=== PATIENT | male | born 1995 | race African-American/Black ===

== ENCOUNTER 2016-11-10 13:54 | Emergency (ER) | payer OTHER ==
[~2016-11-10] VITALS: Ht 175.3 cm; Wt 86.0 kg
[~2016-11-10 13:54] MED LIST: ALBU8I INH; CYCL-36 PO; HALO50P IM; IBUP800T23 PO; NAPR500 PO
[2016-11-10 13:57] VITALS: BP 174/84; PULSE 94; RESP 18; TEMP 98.1; O2SAT 98
[2016-11-10] MEDS ORDERED: HALO100P IM (14:14)
[2016-11-10] MEDS ORDERED: LIDOCAINE 1%/EPINEPHrine 1:100,000 SOLN 20 ML VIAL INFIL ONE (14:30)
--- NOTE | 2016-11-10 14:33 | PD ---
Physical Exam Date Seen by Provider: Nov 10, 2016 Time Seen by Provider: 14:32 Narrative I was asked by Dr. Howe to incise and drain abscess to the patient's left groin. Please see his documentation for full history and physical. Data Data Last Documented VS Vital Signs Date Time Temp Pulse Resp B/P Pulse Ox O2 Delivery O2 Flow Rate FiO2 11/10/16 14:10 16 11/10/16 13:57 98.1 94 174/84 98 Orders Wound Culture And Gram Stain (11/10/16 14:18) Lidocai-Epi 1%-1:100,000 Inj (Xylocaine- (11/10/16 14:30) MDM Medical Record Reviewed: Yes Supervised Visit with ADIS: No Procedures Procedure Narrative INCISION AND DRAINAGE OF ABSCESS: The area was prepped and was sterilely draped. A subcutaneous wheal of 1% Xylocaine with epinephrine with a total number 4 mL was used to anesthetize the area. The area was properly anesthetized. A number 11 scalpel was used to make a 1 -cm incision across the area of the abscess. Cultures were obtained. The abscess was drained an irrigated with normal saline. Quarter inch iodoform packing was placed in the wound. Sterile dressing applied. Patient advised to have packing removed in two days. Queenie Brock Nov 10, 2016 14:33
--- NOTE | 2016-11-10 14:43 | PD ---
HPI Chief Complaint: Skin Problem Time Seen by Provider: 14:15 Travel History International Travel<30 days: No Contact w/Intl Traveler<30days: No Traveled to known affect area: No History of Present Illness HPI Diagnoses a 21-year-old male who presents today with complaints of left groin abscess. The patient denies any fever, chills. He does report that the pain and swelling has gotten significantly larger last few days. PFSH Past Medical History Hx Anticoagulant Therapy: No ADHD: Yes Autoimmune Disease: No Bipolar Disorder: Yes Chemotherapy: No Cerebrovascular Accident: No Developmental Delay: No Diminished Hearing: Yes Endocrine: No Genitourinary: No Immune Disorder: No Musculoskeletal: No Neurologic: No Psychiatric: Yes (BIPOLAR, SCHIZOPHRENIA ) Reproductive: No Respiratory: No Immunizations Current: Yes Schizophrenia: Yes Sickle Cell Disease: Yes (PT STATES " I HAVE SICKLE CELL TRAITS") Thyroid Disease: No Tetanus Vaccination: > 5 Years Influenza Vaccination: No Past Surgical History Surgical History: No Previous Surgery Hysterectomy: No Other Surgery: No Social History Alcohol Use: Yes (Rarely per pt.) Tobacco Use: Yes (1 PPD) Substance Use: Yes (MARIJUANA) Allergies-Medications (Allergen,Severity, Reaction): Coded Allergies: No Known Allergies (Unverified , 11/10/16) Reported Meds & Prescriptions Reported Meds & Active Scripts Active Clindamycin (Clindamycin HCl) 150 Mg Cap 450 Mg PO TID Reported Haldol Decanoate Inj (Haloperidol Decanoate) 100 Mg/Ml Inj 100 Mg IM ONCE Review of Systems Except as stated in HPI: all other systems reviewed are Neg General / Constitutional: No: Fever, Chills Genitourinary: Positive: Other (left inguinal abscess.) Physical Exam Narrative GENERAL: Well-nourished, well-developed patient. SKIN: Warm and dry. HEAD: Normocephalic last atraumatic. EYES: No scleral icterus. No injection or drainage. GASTROINTESTINAL: Abdomen soft, non-tender, nondistended. On examination patient's left inguinal fold, there is a 3 x 2 cm swelling with a white head is likely consistent with a folliculitis that has turned into an abscess. There is no active drainage noted. Data Data Last Documented VS Vital Signs Date Time Temp Pulse Resp B/P Pulse Ox O2 Delivery O2 Flow Rate FiO2 11/10/16 14:10 16 11/10/16 13:57 98.1 94 174/84 98 Orders Wound Culture And Gram Stain (11/10/16 14:18) Lidocai-Epi 1%-1:100,000 Inj (Xylocaine- (11/10/16 14:30) MDM Medical Decision Making Medical Screen Exam Complete: Yes Emergency Medical Condition: Yes Differential Diagnosis Cellulitis versus abscess versus inguinal lymph node Narrative Course 21-year-old male who presents with left inguinal abscess. The abscess has had incision and drainage by GONZALO Orosco. Cultures have been obtained. We will start him on oral antibiotics 10 days. He is instructed return to be develops any recurrence, fevers chills, or any other reason. Diagnosis Primary Impression: Abscess of left groin Additional Instructions: Remove packing in 2 days. If worse swelling, fevers, chills, or any other recent concerns, please return to the hospital. Med/Other Pt SpecificInfo: Prescription(s) given Scripts Clindamycin 150 Mg [id number] Mg PO TID #21 CAP Ref 0 Prov:Martin Howe MD 11/10/16 Disposition: 01 DISCHARGE HOME Condition: Stable Martin Howe MD Nov 10, 2016 14:43
[2016-11-10] MEDS ORDERED: CLIN1CAP5 PO (14:44)
== END 2016-11-10 15:06 | disposition home or self-care (01) ==
LOC: NEPC 13:54
DX: L02.214 Cutaneous abscess of groin (principal); D57.3 Sickle-cell trait; F17.210 Nicotine dependence, cigarettes, uncomplicated; B96.89 Other specified bacterial agents as the cause of diseases classified elsewhere
CPT/HCPCS: 10061; 86403; 87070; 87185; 87205

== ENCOUNTER 2016-11-28 08:55 | Emergency (ER) | payer OTHER ==
[~2016-11-28] VITALS: Ht 175.3 cm; Wt 80.0 kg
[~2016-11-28 08:55] MED LIST changes: -ALBU8I INH; +CLIN1CAP5 PO; -CYCL-36 PO; +HALO100P IM; -HALO50P IM; -IBUP800T23 PO; -NAPR500 PO
[2016-11-28 08:56] VITALS: BP 134/83; PULSE 98; RESP 20; TEMP 97.5; O2SAT 98
[2016-11-28] MEDS ORDERED: SODIUM CHLOR 0.9% 1000 ML INJ 1,000 ML IV SCH (09:49)
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
[2016-11-28] MEDS ORDERED: SODIUM CHLORIDE 0.9% FLUSH 5 ML FLUSH IVF PRN (10:00)
[2016-11-28] MEDS ORDERED: MORPHINE SULFATE 4 MG/ML INJ IV PUSH ONE (10:30)
[2016-11-28] MEDS ORDERED: ONDANSETRON HCL 4 MG/2 ML VIAL IV PUSH ONE (10:30)
[2016-11-28 10:47] LABS: AUTOMATED NEUTROPHIL # 2.6 TH/MM3 (1.8-7.7); BASOPHIL % 0.9 % (0.0-2.0); EOSINOPHIL % 0.1 % (0.0-4.0); HEMATOCRIT 42.4 % (39.0-51.0); HEMO FLAGS DIFF FINAL; LYMPH % 28.7 % (9.0-44.0); LYMPHOCYTE # 1.4 TH/MM3 (1.0-4.8); MEAN CELL VOLUME 82.9 FL (80.0-100.0); MEAN CORPUSCULAR HEMOGLOBIN 27.9 PG (27.0-34.0); MEAN CORPUSCULAR HGB CONC 33.7 % (32.0-36.0); MONO % 15.3 % (0.0-8.0); PLATELET COUNT 223 TH/MM3 (150-450); RED BLOOD COUNT 5.11 MIL/MM3 (4.50-5.90); RED CELL DISTRIBUTION WIDTH 15.5 % (11.6-17.2); WHITE BLOOD COUNT 4.7 TH/MM3 (4.0-11.0)
[2016-11-28 10:59] LABS: INTERNATIONAL NORMALIZED RATIO 1.1 RATIO; PROTHROMBIN TIME - PATIENT 11.9 SEC (9.8-11.6)
[2016-11-28 11:07] LABS: BICARBONATE 23.7 MEQ/L (21.0-32.0); POTASSIUM 3.9 MEQ/L (3.5-5.1)
[2016-11-28] MEDS ORDERED: IOHEXOL 350 MG/ML 10 ML VIAL (for RAD DIAG) IV ONE (12:13)
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
[2016-11-28] MEDS ORDERED: IBUP800T23 PO (13:27)
[2016-11-28] MEDS ORDERED: ROBA500T PO (13:27)
== END 2016-11-28 13:58 | disposition home or self-care (01) ==
LOC: NEPB 08:55
DX: S27.321A Contusion of lung, unilateral, initial encounter (principal); S16.1XXA Strain of muscle, fascia and tendon at neck level, initial encounter; M79.1 Myalgia; F17.210 Nicotine dependence, cigarettes, uncomplicated; F12.90 Cannabis use, unspecified, uncomplicated; V43.62XA Car passenger injured in collision with other type car in traffic accident, initial encounter; Y92.410 Unspecified street and highway as the place of occurrence of the external cause
CPT/HCPCS: 70450; 71260; 72125; 72128; 72131; 74177; 80048; 85025; 85610; 85730; 86850; 86900; 86901; 96361; 96374; 96375; 99285; J2270; J2405; J7030; L0150; Q9967

== ENCOUNTER 2016-12-03 23:38 | Emergency (ER) | payer OTHER ==
[~2016-12-03] VITALS: Ht 175.3 cm; Wt 81.0 kg
[~2016-12-03 23:38] MED LIST changes: -CLIN1CAP5 PO; +IBUP800T23 PO; +ROBA500T PO
[2016-12-03 23:39] VITALS: BP 114/76; PULSE 94; RESP 16; TEMP 97.5; O2SAT 96
== END 2016-12-04 00:19 | disposition left against medical advice (07) ==
LOC: NED 23:38
DX: R44.9 Unspecified symptoms and signs involving general sensations and perceptions (principal); Z53.21 Procedure and treatment not carried out due to patient leaving prior to being seen by health care provider
CPT/HCPCS: 99281